=== PATIENT | male | born 1960 | race Caucasian/White ===

== ENCOUNTER → 2018-01-31 | Outpatient (CLI) | payer OTHER | LOC: MHCPAIN 08:08 | DX: G89.29 Other chronic pain (principal); M79.2 Neuralgia and neuritis, unspecified; M79.1 Myalgia | CPT/HCPCS: G0463 ==

== ENCOUNTER 2021-04-10 07:21 | Day surgery (SDC) | payer OTHER ==
[~2021-04-10] VITALS: Ht 182.9 cm; Wt 80.1 kg
[~2021-04-10 07:21] MED LIST: CLARITIN 1010 MG/TAB PO; COLACE 100100 MG/CAP PO; NORCO 325 MG-51 TAB PO; ONE-A-DAY ESSE1 EACH PO; ZOFRAN 4MG T4 MG/TAB PO
[2021-04-10] MEDS ORDERED: MASON NATURAL1200 MG PO (08:16)
[2021-04-10 09:10] VITALS: BP 106/76; PULSE 83; TEMP 97.1
--- NOTE | 2021-04-10 09:10 | NUR ---
Pt to [facility] via cart from [facility]. Pt drowsy but ambulates to recliner with stand by assistance. Pt denies pain or nausea. VSS. Muffin and water given per pt request. Call light within reach.
[2021-04-10 09:25] VITALS: BP 109/82; PULSE 62
--- NOTE | 2021-04-10 09:25 | NUR ---
Pt continues to rest. Tolerating PO food and fluids without nausea. Denies needs. Call light within reach.
[2021-04-10 09:40] VITALS: BP 109/84; PULSE 59
--- NOTE | 2021-04-10 09:40 | NUR ---
IV site discontinued with all parts intact. Pt up to dress. Awaiting physician for post op consulation.
--- NOTE | 2021-04-10 10:07 | NUR ---
Discharge instructions reviewed. Pt voices understanding. Pt escorted to private car. Pt accompanied home by his .
== END 2021-04-10 10:07 | disposition home or self-care (01) ==
LOC: SDCO 07:21
DX: Z12.11 Encounter for screening for malignant neoplasm of colon (principal); D12.2 Benign neoplasm of ascending colon; D12.0 Benign neoplasm of cecum; K64.1 Second degree hemorrhoids
CPT/HCPCS: J2704; J7030

== ENCOUNTER 2024-04-27 05:39 | Day surgery (SDC) | payer BC, OTHER ==
[~2024-04-27] VITALS: Ht 182.9 cm; Wt 79.1 kg
[~2024-04-27 05:39] MED LIST changes: +LR 1,000 ML IV SCH; +MASON NATURAL1200 MG PO; +Ondansetron 4 MG/2 ML VIAL IV PRN
[2024-04-27 06:11] VITALS: BP 116/79; PULSE 63; TEMP 96.8
[2024-04-27] MEDS ORDERED: Lidocaine PF 2% (20 MG/ML) 5 ML VIAL ONE ×2 (06:54→06:57)
[2024-04-27 08:00] VITALS: BP 103/78; PULSE 70; TEMP 97.8
[2024-04-27 08:15] VITALS: BP 106/80; PULSE 75
--- NOTE | 2024-04-27 08:21 | NUR ---
0758- Pt arrived to [place] [facility] - ambulated with standby assist from cart to chair 0803- pt tolerating po intake well 0809- MD Octaviano in room with pt 0823- pt verbalizes understanding discharge education 0831- pt dressed self 0835- pt escorted out to 's vehicle via wheelchair
[2024-04-27 08:23] VITALS: BP 115/78; PULSE 75
[2024-04-27 13:26] VITALS: BP 99/73; PULSE 79
== END 2024-04-27 08:25 ==
LOC: SDCO 05:39
DX: Z12.11 Encounter for screening for malignant neoplasm of colon (principal); K57.30 Diverticulosis of large intestine without perforation or abscess without bleeding; Z86.010 Personal history of colon polyps; Z85.46 Personal history of malignant neoplasm of prostate
CPT/HCPCS: J2704